=== PATIENT | female | born 1990 ===

== ENCOUNTER 2016-06-18 06:56 | Emergency (ER) | payer OTHER ==
[~2016-06-18] VITALS: Ht 162.6 cm; Wt 61.7 kg
[2016-06-18 08:08] LABS: ABSOLUTE BASOPHIL COUNT 0 /CUMM (0.0-0.2); ABSOLUTE EOSINOPHIL COUNT 0.1 /CUMM (0.0-0.7); ABSOLUTE GRANULOCYTE CT 9.9 /CUMM (1.4-6.5); ABSOLUTE LYMPH COUNT 0.4 /CUMM (1.2-3.4); ABSOLUTE MONOCYTE COUNT 0.3 /CUMM (0.10-0.60); BASOPHIL % 0 % (0.0-2.0); EOSINOPHIL % 0.6 % (0-5); GRANULOCYTE % 92.4 % (42.2-75.2); HEMATOCRIT 37.2 % (37-47); MEAN CORPUSCULAR HGB 30.6 PG (27.0-31.0); MEAN CORPUSCULAR HGB CONC 33.1 G/DL (33.0-37.0); MEAN CORPUSCULAR VOLUME 92.5 FL (81.0-99.0); MEAN PLATELET VOLUME 8.9 FL (7.4-10.4); PLATELET COUNT 181 /CUMM (130-400); RBC DISTRIBUTION WIDTH 13.9 % (11.5-14.5); RED BLOOD CELL CT 4.02 /CUMM (4.20-5.40); WHITE BLOOD CELL COUNT 10.7 /CUMM (4.8-10.8)
--- NOTE | 2016-06-18 08:24 | ED GI/GU/ABDOMINAL COMPLAINT ---
History of Present Illness General Chief Complaint: Nausea, Vomiting, Diarrhea Stated Complaint: N/V/D Source: patient, family, old records Exam Limitations: no limitations Vital Signs & Intake/Output Vital Signs & Intake/Output Vital Signs Date Time Temp Pulse Resp B/P Pulse O2 O2 Flow FiO2 Ox Delivery Rate 06/18 0906 98.4 100 18 119/69 99 Room Air 06/18 0717 98.9 123 20 133/89 99 Room Air Allergies Coded Allergies: metronidazole (From FLAGYL) (Intermediate, RASH 06/18/16) nitrofurantoin (From MACROBID) (Intermediate, CHEST PAIN, BODY ACHES 06/18/16) Triage Note: C/O VOMITING X 2 DAYS WITH R SIDED MID ABODMINAL PAIN (INTERMITTANT) WITH DIARRHEA. DENIES . Triage Nurses Notes Reviewed? yes LMP (ages 10-50): unknown ? n Is pt currently ? No Onset: Just prior to arrival Duration: hour(s):, continues in ED, waxing and waning Timing: recent history Quality/Severity: cramping, moderate, vomiting Location: periumbilical Radiation: no radiation Activities at Onset: none Prior Abdominal Problems: none Past Sexual History: Unobtainable at this time Modifying Factors: Worsens With: eating. Associated Symptoms: abdominal pain, diarrhea, fatigue, nausea/vomiting HPI: 8 hours prior to admission patient complains of nausea vomiting of previously food frequent loose watery stool crampy nonradiating mild to moderate periumbilical pain. She denies fever chills chest pain cough shortness breath headache dysuria rash bleeding. Past History Travel History Traveled to [place] past 21 day No Medical History Any Pertinent Medical History? none History of CDIFF: No Isolation History: Standard Surgical History Surgical History: non-contributory Psychosocial History What is your primary language Pan[place]ian Tobacco Use: Current Daily Use Daily Tobacco Use Amount/Type: =< 4 Cigarettes daily ETOH Use: denies use Family History Hx Contributory? No Review of Systems Review of Systems Constitutional: Reports: see HPI, malaise. EENTM: Reports: no symptoms. Respiratory: Reports: no symptoms. Cardiovascular: Reports: no symptoms. GI: Reports: see HPI, abdominal pain, diarrhea, nausea, vomiting. Genitourinary: Reports: no symptoms. Musculoskeletal: Reports: no symptoms. Skin: Reports: no symptoms. Neurological/Psychological: Reports: no symptoms. Hematologic/Endocrine: Reports: no symptoms. Immunologic/Allergic: Reports: no symptoms. All Other Systems: Reviewed and Negative Physical Exam Physical Exam General Appearance: well developed/nourished, alert, awake, anxious, mild distress, thin Head: atraumatic, normal appearance Eyes: Bilateral: normal appearance, PERRL, EOMI, normal inspection. Ears, Nose, Throat, Mouth: hearing grossly normal, moist mucous membrane Neck: normal inspection, supple, full range of motion, normal alignment Respiratory: normal breath sounds, chest non-tender, no respiratory distress, quiet respiration, lungs clear Cardiovascular: regular rate/rhythm, normal peripheral pulses, norml femoral pulses equa Peripheral Pulses: 4+ carotid (R), 4+ carotid (L), 2+ radial (R), 2+ radial (L) Gastrointestinal: soft, non-tender, no organomegaly, abnormal bowel sounds ( hyperactive) Back: normal inspection, normal range of motion, no vertebral tenderness Extremities: normal range of motion, no ligament instability Neurologic/Psych: no motor/sensory deficits, awake, alert, oriented x 3, normal gait, normal mood/affect, recreation engineer II-XII nml as tested Skin: intact, normal color, warm/dry Core Measures ACS in differential dx? No Severe Sepsis Present: No Septic Shock Present: No Progress Differential Diagnosis: appendicitis, biliary colic, gastritis, PUD/GERD, UTI/ pyelo Plan of Care: Orders Procedure Date/time Status URINE 06/18 0739 Complete URINALYSIS 06/18 0739 Complete LIPASE 06/18 0739 Complete COMPREHENSIVE METABOLIC PANEL 06/18 0739 Complete CBC WITHOUT DIFFERENTIAL 06/18 0739 Complete AMYLASE 06/18 0739 Complete Laboratory Tests 06/18/16 0809: Urinalysis LIGHT H, Urine Color YEL, Urine Clarity CLEAR, Urine pH 6.0, Ur Specific [place] >= 1.030, Urine Protein NEG, Urine Ketones 40 H, Urine Nitrite NEG, Urine Bilirubin NEG@ICTO, Urine Urobilinogen 0.2, Ur Leukocyte Esterase NEG , Ur Microscopic SEDIMENT EXAMINED, Urine RBC 1-3, Urine WBC 1-3 H, Ur Epithelial Cells FEW, Urine Mucus FEW, Urine Hemoglobin NEG, Urine Glucose NEG, Urine Test NEGATIVE 06/18/16 0800: Anion Gap 13, Estimated GFR > 60, BUN/Creatinine Ratio 15.7, Glucose 88, Calcium 8.8, Total Bilirubin 0.5, AST 17, ALT 21, Alkaline Phosphatase 77, Total Protein 6.9, Albumin 4.3, Globulin 2.6, Albumin/Globulin Ratio 1.7, Amylase 41, Lipase 62, CBC w Diff MAN DIFF ORDERED, RBC 4.02 L, MCV 92.5, MCH 30.6, RDW 13.9, MPV 8.9, Gran % 92.4 H, Lymphocytes % 4.2 L, Monocytes % 2.8, Eosinophils % 0.6, Basophils % 0 L, Absolute Granulocytes 9.9 H, Absolute Lymphocytes 0.4 L, Absolute Monocytes 0.3, Absolute Eosinophils 0.1, Absolute Basophils 0, Platelet Estimate VERIFIED BY SMEAR, Normocytic RBCs VERIFIED, Normochromic RBCs VERIFIED , PUBS MCHC 33.1 Initial ED EKG: none Departure Departure Time of Disposition: 919 Disposition: HOME OR SELF CARE Condition: Stable Clinical Impression Primary Impression: Nausea, vomiting and diarrhea Secondary Impressions: Abdominal pain Qualifiers: Abdominal location: periumbilical Qualified Code: R10.33 - Periumbilical pain Dehydration syndrome Referrals: BERNARD SALCEDO,TRUONG ADAMS (PCP/Family) Additional Instructions: Clear liquids for 12-24 hours until better Departure Forms: Customer Survey General Discharge Information RELEASE- WORK Prescriptions: Current Visit Scripts Ondansetron (Zofran Odt) 1 TAB SL TID PRN nausea #15 TAB Hyoscyamine Sulfate (Levsin-Sl) 1-2 TAB SL Q4P PRN abd pain, diarrhea #30 TAB Loperamide HCl (Imodium A-D) 0 PO SEE ADMIN CRITERIA PRN diarrhea #24 TAB 1 tab after each loose stool up to 7 per day
[2016-06-18 09:06] VITALS: BP 119/69
[2016-06-18] MEDS ORDERED: LEVSIN-SL0.125 MG SL (09:24)
[2016-06-18] MEDS ORDERED: ZOFRAN ODT4 M1 SL (09:24)
[2016-06-18] MEDS ORDERED: IMODIUM A-D2 M1 PO (09:24)
[2016-06-18] MEDS ORDERED: KETOROLAC TROME10 M1 PO (09:27)
== END 2016-06-18 09:32 ==
LOC: ERH 06:56
PROVIDERS: Emergency Medicine
DX: R11.2 Nausea with vomiting, unspecified (principal); R19.7 Diarrhea, unspecified; R10.33 Periumbilical pain
CPT/HCPCS: 81001; 81025; 96361; 96374; 96375; J1885; J2405

== ENCOUNTER 2016-12-28 23:44 | Emergency (ER) | payer OTHER ==
[~2016-12-28] VITALS: Ht 167.6 cm; Wt 59.0 kg
[~2016-12-28 23:44] MED LIST: IMODIUM A-D2 M1 PO; KETOROLAC TROME10 M1 PO; LEVSIN-SL0.125 MG SL; ZOFRAN ODT4 M1 SL
--- NOTE | 2016-12-29 00:19 | ED GI/GU/ABDOMINAL COMPLAINT ---
History of Present Illness General Chief Complaint: Abdominal Pain/Flank Pain Stated Complaint: ABD PAIN Source: patient, family, old records Exam Limitations: no limitations Vital Signs & Intake/Output Vital Signs & Intake/Output Vital Signs Date Time Temp Pulse Resp B/P B/P Pulse O2 O2 Flow FiO2 Mean Ox Delivery Rate 12/29 0051 98.3 70 11 128/76 97 Room Air Allergies Coded Allergies: metronidazole (From FLAGYL) (Intermediate, RASH 12/29/16) nitrofurantoin (From MACROBID) (Intermediate, CHEST PAIN, BODY ACHES 12/29/16) Reconcile Medications Hyoscyamine Sulfate (Levsin-Sl) 0.125 MG TAB.SUBL 1-2 TAB SL Q4P PRN abd pain, diarrhea Ketorolac Tromethamine 10 MG TABLET 1 TAB PO Q6P PRN pain Loperamide HCl (Imodium A-D) 2 MG TABLET 0 PO SEE ADMIN CRITERIA PRN diarrhea 1 tab after each loose stool up to 7 per day Ondansetron (Zofran Odt) 4 MG TAB.RAPDIS 1 TAB SL TID PRN nausea Triage Note: PT TO TRIAGE WITH N/V/D FOR THE PAST TWO WEEKS WITH LOWER ABD PAIN. PT STATES SHE EATS AT 1 PM AND WHEN SHE WAKES AT 10 PM SHE VOMITS THAT FOOD Triage Nurses Notes Reviewed? yes ? N Is pt currently ? No HPI: Patient presents with nausea vomiting diarrhea and abdominal pain WHICH started 3 days ago. The symptoms are constant. H and states that she works nights and if she eats something when she gets home from work and then goes to bed when she wakes up hours later she vomited the food that she ate prior to going to sleep. The pain is crampy pain in the periumbilical area. The pain wraps around to her back. The pain is exacerbated by food. At its worse the pain as 10 on a 10 and when she does not eat it goes down to a 4 out of 10. There are no fevers or chills. Past History Travel History Traveled to [place] past 21 day No Medical History Any Pertinent Medical History? see below for history Neurological: NONE EENT: NONE Cardiovascular: NONE Respiratory: NONE Gastrointestinal: NONE Hepatic: NONE Renal: NONE Musculoskeletal: BACK PROBLEMS Psychiatric: NONE Endocrine: NONE Blood Disorders: NONE Cancer(s): NONE SKETCHER/Reproductive: NONE History of CDIFF: No Surgical History Surgical History: non-contributory Psychosocial History What is your primary language Citizen Of [place] Tobacco Use: Never used ETOH Use: denies use Illicit Drug Use: denies illicit drug use Family History Hx Contributory? No Review of Systems Review of Systems Constitutional: Reports: no symptoms. EENTM: Reports: no symptoms. Respiratory: Reports: no symptoms. Cardiovascular: Reports: no symptoms. GI: Reports: see HPI, abdominal pain, diarrhea, nausea, vomiting. Genitourinary: Reports: no symptoms. Musculoskeletal: Reports: no symptoms. Skin: Reports: no symptoms. Neurological/Psychological: Reports: no symptoms. Hematologic/Endocrine: Reports: no symptoms. Immunologic/Allergic: Reports: no symptoms. All Other Systems: Reviewed and Negative Physical Exam Physical Exam General Appearance: well developed/nourished, alert, awake, mild distress Head: atraumatic, normal appearance Eyes: Bilateral: PERRL, EOMI. Ears, Nose, Throat, Mouth: hearing grossly normal, DRY MUCOSA Neck: normal inspection, supple, full range of motion Respiratory: normal breath sounds, chest non-tender, no respiratory distress, lungs clear Cardiovascular: regular rate/rhythm, normal peripheral pulses Gastrointestinal: normal bowel sounds, soft, non-tender, no organomegaly Back: normal inspection, normal range of motion, NO CVA TENDERNESS Extremities: normal range of motion, NO EDEMA Neurologic/Psych: no motor/sensory deficits, awake, alert, oriented x 3, normal gait, normal mood/affect Skin: intact, normal color, warm/dry Core Measures ACS in differential dx? No Severe Sepsis Present: No Septic Shock Present: No Progress Differential Diagnosis: appendicitis, biliary colic, cholecystitis, gastritis, hepatitis, ischemic bowel, inflamm bowel dis, ovarian cyst, ovarian torsion, pancreatitis, peptic ulcer, PUD/GERD, threatened AB, UTI/pyelo Plan of Care: Orders Procedure Date/time Status LIPASE 12/29 17 Complete HUMAN BETA HCG SCREEN 12/29 17 Complete COMPREHENSIVE METABOLIC PANEL 12/29 17 Complete CBC WITHOUT DIFFERENTIAL 12/29 17 Complete AMYLASE 12/29 17 Complete URINALYSIS 12/28 8353 Active Laboratory Tests 12/29/16 0004: Anion Gap 8, Estimated GFR > 60, BUN/Creatinine Ratio 8.6, Glucose 73, Calcium 8.3 L, Total Bilirubin 0.3, AST 16, ALT 24, Alkaline Phosphatase 49, Total Protein 5.8 L, Albumin 3.6, Globulin 2.2, Albumin/Globulin Ratio 1.6, Amylase 33, Lipase 50, Total Beta HCG NEGATIVE, CBC w Diff NO MAN DIFF REQ, RBC 3.97 L, MCV 92.2, MCH 30.6, RDW 13.7, MPV 9.4, Gran % 53.8, Lymphocytes % 33.0, Monocytes % 7.5, Eosinophils % 5.3 H, Basophils % 0.4, Absolute Granulocytes 4.1, Absolute Lymphocytes 2.5, Absolute Monocytes 0.6, Absolute Eosinophils 0.4, Absolute Basophils 0, PUBS MCHC 33.2 12/28/16 2353: Total Beta HCG Cancelled Initial ED EKG: none Comments: Patient is feeling much better. After IV hydration. Patient states that her doctor told her that she might have cyclic vomiting syndrome. Departure Departure Disposition: HOME OR SELF CARE Condition: Stable Clinical Impression Primary Impression: Lower abdominal pain, unspecified Secondary Impressions: Vomiting Qualifiers: Vomiting type: cyclical vomiting Vomiting Intractability: non- intractable Nausea presence: with nausea Qualified Code: G43.A0 - Cyclical vomiting, not intractable Referrals: BERNARD SALCEDO,TRUONG ADAMS (PCP/Family) Additional Instructions: FOLLOW UP WITH YOUR DOCTOR TAKE REGLAN NEEDED RETURN FOR ANY CONCERNS Departure Forms: Customer Survey General Discharge Information Prescriptions: Current Visit Scripts Metoclopramide HCl (Reglan) 1 TAB PO 4 TIMES/DAY PRN NAUSEA #20 TAB 30 minutes before meals and bedtime
[2016-12-29 01:06] LABS: ABSOLUTE BASOPHIL COUNT 0 /CUMM (0.0-0.2); ABSOLUTE EOSINOPHIL COUNT 0.4 /CUMM (0.0-0.7); ABSOLUTE GRANULOCYTE CT 4.1 /CUMM (1.4-6.5); ABSOLUTE LYMPH COUNT 2.5 /CUMM (1.2-3.4); ABSOLUTE MONOCYTE COUNT 0.6 /CUMM (0.10-0.60); BASOPHIL % 0.4 % (0.0-2.0); EOSINOPHIL % 5.3 % (0-5); GRANULOCYTE % 53.8 % (42.2-75.2); HEMATOCRIT 36.6 % (37-47); MEAN CORPUSCULAR HGB 30.6 PG (27.0-31.0); MEAN CORPUSCULAR HGB CONC 33.2 G/DL (33.0-37.0); MEAN CORPUSCULAR VOLUME 92.2 FL (81.0-99.0); MEAN PLATELET VOLUME 9.4 FL (7.4-10.4); PLATELET COUNT 174 /CUMM (130-400); RBC DISTRIBUTION WIDTH 13.7 % (11.5-14.5); RED BLOOD CELL CT 3.97 /CUMM (4.20-5.40); WHITE BLOOD CELL COUNT 7.6 /CUMM (4.8-10.8)
[2016-12-29] MEDS ORDERED: REGLAN10 M1 PO (02:02)
[2016-12-29 02:44] VITALS: BP 122/74
== END 2016-12-29 02:44 ==
LOC: ERH 23:44
PROVIDERS: Emergency Medicine
DX: R10.33 Periumbilical pain (principal); R11.10 Vomiting, unspecified
CPT/HCPCS: 81001; 96374; 96375; J1885; J2405